=== PATIENT | male | born 1945 | race Caucasian/White ===

== ENCOUNTER 2017-06-05 14:57 | Emergency (ER) | payer MEDICARE, BC ==
[~2017-06-05] VITALS: Ht 170.2 cm; Wt 97.3 kg
[~2017-06-05 14:57] MED LIST: ASPIRIN 81M81 MG/TA2 PO; ATIVAN 0.50.5 MG/TAB PO; CALCIUM 600600 MG PO; CALCIUM600 MG PO; CEFACLOR250 MG PO; CELEXA40 MG PO; COLACE 100100 MG/CAP PO; COREG 6.256.25 MG/TA PO; EFFIENT10 MG PO; EPA/GLA1 SGL PO; FLOMAX 0.40.4 MG/CAP PO; FOLIC ACID 40400 MCG PO; LEVOXYL0.05 MG PO; LIPITOR 10MG10 MG PO; MAGIMIN-FORTE250 MG PO; MAGNESIUM250 M1 PO; MASON NATURAL1000 MG PO; MASON NATURAL1200 MG PO; NEURONTIN100 MG/CAP PO; NEURONTIN300 MG/CAP PO; NITROSTAT0.4 MG/TAB SL; NORCO 325 MG-51 TAB PO; OXYCONTIN 10MG10 MG PO; PERCOCET 325 MG1 TA2 PO; PLAVIX 75MG TAB75 MG PO; PRILOSEC 20MG20 MG PO; RISPERDAL 1M1 MG/TAB PO; SYNTHROID0.075 MG/T PO; THEO-DUR 2200 MG/TAB PO; TOPROL XL 25MG25 MG PO; TRADJENTA5 MG PO; VASOTEC 2.2.5 MG/TAB PO; ZESTRIL 10MG10 MG PO; ZYPREXA ZYDIS5 MG PO
[2017-06-05 15:05] VITALS: BP 116/74; TEMP 97.7
[2017-06-05 15:36] LABS: BASO # 0.1 (0.0-0.2); BASO % 0.5 % (0.0-2.0); EOS # 0.3 (0.0-0.7); EOS % 2.3 % (0-4.0); GRAN # 7.8 (1.4-6.5); GRAN % 71.3 % (42.2-75.2); HEMATOCRIT 44.7 % (42.0-52.0); HEMOGLOBIN 15.6 g/dl (13.5-18.0); LYMPH % 18.3 % (20.0-51.0); MEAN CELL VOLUME 92 fl (80.0-100.0); MEAN CORPUSCULAR HEMOGLOBIN 32 pg (27.0-31.0); MEAN CORPUSCULAR HGB CONC 35 g/dl (33.0-37.0); MEAN PLATELET VOLUME 9.6 fl (7.4-10.4); MONO # 0.8 (0.1-0.6); MONO % 7.3 % (1.7-9.3); PLATELET COUNT 257 K/mm3 (130-400); RED BLOOD COUNT 4.85 M/mm3 (4.20-5.60); REDCELL DISTRIBUTION WIDTH-CV 12.4 % (11.5-14.5); WHITE BLOOD COUNT 10.9 K/mm3 (4.8-10.8)
[2017-06-05 15:42] LABS: CALCIUM 9.2 mg/dL (8.4-10.2); CREATININE, serum 0.89 mg/dL (0.66-1.25); POTASSIUM 4.2 mmol/L (3.4-5.0)
[2017-06-05 17:21] VITALS: PULSE 78
== END 2017-06-05 17:22 | disposition home or self-care (01) ==
LOC: COL.ER 14:57
PROVIDERS: Emergency Medicine
DX: S09.90XA Unspecified injury of head, initial encounter (principal); S01.01XA Laceration without foreign body of scalp, initial encounter; Z23 Encounter for immunization; W06.XXXA Fall from bed, initial encounter; Y92.128 Other place in nursing home as the place of occurrence of the external cause

== ENCOUNTER → 2017-06-25 | Outpatient (REF) ==
[2017-06-25 19:08] LABS: SQUAMOUS EPITHELIAL 0-2 /hpf; URINE BACTERIA Rare /hpf; URINE RBC 0-2 /hpf
[2017-06-25 19:23] LABS: URINE APPEARANCE Clear; URINE COLOR Yellow
[2017-06-25 19:24] LABS: PH 7 (5-8); URINE BILIRUBIN Negative (NEGATIVE); URINE GLUCOSE Negative (NEGATIVE); URINE KETONE Negative (NEGATIVE); URINE UROBILINOGEN Negative (NEGATIVE)
[2017-06-25 19:25] LABS: URINE BLOOD Negative (NEGATIVE)
== END ==
LOC: ZCOL.LAB 18:35
PROVIDERS: Family Medicine
DX: Z01.89 Encounter for other specified special examinations (principal)

== ENCOUNTER 2017-12-14 12:54 | Inpatient (IN) | payer MEDICARE, BC ==
[~2017-12-14] VITALS: Ht 170.2 cm; Wt 81.8 kg
[2017-12-14] VITALS (365 sets, daily range): BP systolic 113–147; BP diastolic 60–89; PULSE 130–135; TEMP 97.8–98.6; O2SAT 87–100
[2017-12-14 13:23] LABS: BASO # 0.1 (0.0-0.2); BASO % 0.2 % (0.0-2.0); GRAN % 89.7 % (42.2-75.2); HEMATOCRIT 49.2 % (42.0-52.0); HEMOGLOBIN 17.5 g/dl (13.5-18.0); LYMPH % 2.6 % (20.0-51.0); MEAN CELL VOLUME 91 fl (80.0-100.0); MEAN CORPUSCULAR HEMOGLOBIN 32 pg (27.0-31.0); MEAN CORPUSCULAR HGB CONC 36 g/dl (33.0-37.0); MEAN PLATELET VOLUME 9.2 fl (7.4-10.4); MONO # 2.4 (0.1-0.6); MONO % 6.1 % (1.7-9.3); PLATELET COUNT 437 K/mm3 (130-400); REDCELL DISTRIBUTION WIDTH-CV 12.3 % (11.5-14.5)
[2017-12-14 13:27] LABS: INR 1.1 (0.8-3.0); PROTHROMBIN TIME 13.3 SECONDS (9.7-12.8)
[2017-12-14 13:29] LABS: ALBUMIN 3.9 gm/dL (3.5-5.0); BILIRUBIN,TOTAL 1.2 mg/dL (0.0-1.0); CALCIUM 10.2 mg/dL (8.4-10.2); CREATININE, serum 1.93 mg/dL (0.66-1.25); PARTIAL THROMBOPLASTIN TIME 28.5 SECONDS (26.0-37.0); POTASSIUM 4.7 mmol/L (3.4-5.0); TOTAL PROTEIN 7.3 gm/dL (6.4-8.2)
[2017-12-14 13:41] LABS: TROPONIN-I 0.031 ng/mL (0.000-0.034)
[2017-12-14 14:06] LABS: COLLECTION METHOD CATHETER
[2017-12-14 14:19] LABS: AMORPHOUS CRYSTAL Present /uL; PH 9 (5-8); SQUAMOUS EPITHELIAL None Seen /hpf; URINE APPEARANCE Cloudy; URINE BACTERIA None Seen /hpf; URINE BILIRUBIN Negative (NEGATIVE); URINE BLOOD 3+ (NEGATIVE); URINE COLOR Red; URINE GLUCOSE Negative (NEGATIVE); URINE KETONE Negative (NEGATIVE); URINE LEUKOCYTE ESTERASE 2+ (NEGATIVE); URINE NITRATE Negative (NEGATIVE); URINE PROTEIN(semi-quant) 2+ (NEGATIVE); URINE RBC >50 /hpf; URINE UROBILINOGEN Negative (NEGATIVE)
[2017-12-14 16:54] LABS: ARTERIAL BLD GAS O2 SATURATION 96.2 % (92-100); ARTERIAL BLD GAS TCO2 CT 14.6; ARTERIAL BLOOD GAS BASE EXCESS -8.9 (-2-2); ARTERIAL BLOOD GAS HCO3 13.9 meq/L (22-26)
[2017-12-14] MEDS ORDERED: ATIVAN 1MG T1 MG/TAB PO (20:02)
[2017-12-14] MEDS ORDERED: NEURONTIN400 MG/CAP PO (20:04)
[2017-12-14] MEDS ORDERED: MIRAPEX0.25 MG PO (20:08)
[2017-12-14] MEDS ORDERED: CARBIDOPA PO (20:09)
[2017-12-14] MEDS ORDERED: LEVODOPA PO (20:09)
[2017-12-14] MEDS ORDERED: PLAVIX 75MG TAB75 MG PO (20:11)
[2017-12-14] MEDS ORDERED: PROSCAR 5MG5 MG PO (20:14)
[2017-12-14] MEDS ORDERED: AMARYL 2MG T2 MG/TAB PO (20:17)
[2017-12-14] MEDS ORDERED: JANUVIA 100MG100 MG PO (20:18)
[2017-12-14] MEDS ORDERED: COLESTID 1GM1 G PO (20:19)
[2017-12-14] MEDS ORDERED: PEPCID 20MG TAB20 MG PO (20:20)
[2017-12-14] MEDS ORDERED: THORAZINE 225 MG/TAB PO ×2 (20:21→20:28)
[2017-12-14] MEDS ORDERED: ABILIFY5 MG (20:22)
[2017-12-14] MEDS ORDERED: EFFEXOR 75M75 MG/TAB PO (20:24)
[2017-12-14] MEDS ORDERED: EFFEXOR-XR150 MG PO (20:25)
[2017-12-14] MEDS ORDERED: COREG 6.256.25 MG/TA PO (20:25)
[2017-12-14] MEDS ORDERED: DEPO-PROVER150 MG/M1 IM (20:26)
[2017-12-14] MEDS ORDERED: LIPITOR20 MG PO (20:26)
[2017-12-14] MEDS ORDERED: ACTOS 15MG TAB15 MG PO (20:27)
[2017-12-15] VITALS (830 sets, daily range): BP systolic 98–166; BP diastolic 59–93; PULSE 93–120; TEMP 97.2–99.3; O2SAT 68–100
[2017-12-15 05:15] LABS: ARTERIAL BLD GAS O2 SATURATION 97.4 % (92-100); ARTERIAL BLD GAS TCO2 CT 19.7; ARTERIAL BLOOD GAS HCO3 18.8 meq/L (22-26); ARTERIAL BLOOD GAS PCO2 28.1 mmHg (35-45); ARTERIAL BLOOD GAS PO2 107.1 mmHg (80-100); ARTERIAL BLOOD GAS pH 7.44 (7.35-7.45)
[2017-12-15 05:16] LABS: MEAN CELL VOLUME 94 fl (80.0-100.0); MEAN CORPUSCULAR HGB CONC 35 g/dl (33.0-37.0); MEAN PLATELET VOLUME 9.2 fl (7.4-10.4); REDCELL DISTRIBUTION WIDTH-CV 12.5 % (11.5-14.5)
[2017-12-15 05:22] LABS: HEMATOCRIT 32.8 % (42.0-52.0); HEMOGLOBIN 11.4 g/dl (13.5-18.0); MEAN CORPUSCULAR HEMOGLOBIN 33 pg (27.0-31.0); PLATELET COUNT 273 K/mm3 (130-400)
[2017-12-15 05:24] LABS: INR 1.4 (0.8-3.0); PROTHROMBIN TIME 16.8 SECONDS (9.7-12.8)
[2017-12-15 05:27] LABS: ALBUMIN 2.5 gm/dL (3.5-5.0); BILIRUBIN,TOTAL 0.5 mg/dL (0.0-1.0); CALCIUM 8.5 mg/dL (8.4-10.2); CREATININE, serum 0.89 mg/dL (0.66-1.25); POTASSIUM 3.9 mmol/L (3.4-5.0); TOTAL PROTEIN 5.2 gm/dL (6.4-8.2)
[2017-12-15 05:42] LABS: BAND 4 % (0-10); LYMPHOCYTE 8 % (20.0-51.0); NEUTROPHILS 87 % (42.0-75.2)
[2017-12-15 05:43] LABS: ANISOCYTOSIS 1+; MICROCYTOSIS 1+; POLYCHROMASIA 1+
[2017-12-16] VITALS (589 sets, daily range): BP systolic 73–157; BP diastolic 55–82; PULSE 95–113; TEMP 97.8–99.6; O2SAT 75–100
[2017-12-16 05:39] LABS: BASO % 0.2 % (0.0-2.0); EOS # 0.1 (0.0-0.7); EOS % 0.7 % (0-4.0); GRAN # 13.2 (1.4-6.5); GRAN % 77.1 % (42.2-75.2); LYMPH # 2.7 (1.2-3.4); LYMPH % 15.9 % (20.0-51.0); MEAN CELL VOLUME 93 fl (80.0-100.0); MEAN CORPUSCULAR HGB CONC 34 g/dl (33.0-37.0); MEAN PLATELET VOLUME 9.4 fl (7.4-10.4); MONO % 5.5 % (1.7-9.3); PLATELET COUNT 226 K/mm3 (130-400); RED BLOOD COUNT 3.26 M/mm3 (4.20-5.60); REDCELL DISTRIBUTION WIDTH-CV 12.4 % (11.5-14.5)
[2017-12-16 05:40] LABS: HEMATOCRIT 30.3 % (42.0-52.0); HEMOGLOBIN 10.4 g/dl (13.5-18.0); MEAN CORPUSCULAR HEMOGLOBIN 32 pg (27.0-31.0)
[2017-12-16 05:50] LABS: ALBUMIN 2.3 gm/dL (3.5-5.0); BILIRUBIN,TOTAL 0.6 mg/dL (0.0-1.0); CREATININE, serum 0.71 mg/dL (0.66-1.25); POTASSIUM 3.4 mmol/L (3.4-5.0); TOTAL PROTEIN 5.1 gm/dL (6.4-8.2)
[2017-12-17] VITALS (7 sets, daily range): BP systolic 118–150; BP diastolic 53–73; PULSE 84–105; TEMP 97.5–99.5
[2017-12-17 06:43] LABS: BASO % 0.3 % (0.0-2.0); EOS % 0.3 % (0-4.0); GRAN # 8.1 (1.4-6.5); GRAN % 72.5 % (42.2-75.2); LYMPH # 2.2 (1.2-3.4); LYMPH % 19.4 % (20.0-51.0); MEAN CELL VOLUME 92 fl (80.0-100.0); MEAN CORPUSCULAR HGB CONC 35 g/dl (33.0-37.0); MEAN PLATELET VOLUME 9.8 fl (7.4-10.4); MONO # 0.8 (0.1-0.6); PLATELET COUNT 240 K/mm3 (130-400); RED BLOOD COUNT 3.45 M/mm3 (4.20-5.60); REDCELL DISTRIBUTION WIDTH-CV 12.3 % (11.5-14.5)
[2017-12-17 06:45] LABS: HEMATOCRIT 31.7 % (42.0-52.0); MEAN CORPUSCULAR HEMOGLOBIN 32 pg (27.0-31.0)
[2017-12-17 06:53] LABS: ALBUMIN 2.4 gm/dL (3.5-5.0); BILIRUBIN,TOTAL 0.9 mg/dL (0.0-1.0); CALCIUM 7.9 mg/dL (8.4-10.2); CREATININE, serum 0.74 mg/dL (0.66-1.25); POTASSIUM 3.4 mmol/L (3.4-5.0); TOTAL PROTEIN 5.2 gm/dL (6.4-8.2)
[2017-12-18 03:50] VITALS: BP 140/60; PULSE 82; TEMP 98.5
[2017-12-18 06:46] LABS: BASO % 0.2 % (0.0-2.0); EOS # 0.1 (0.0-0.7); EOS % 0.7 % (0-4.0); GRAN # 5.4 (1.4-6.5); GRAN % 65.5 % (42.2-75.2); LYMPH % 23.7 % (20.0-51.0); MEAN CELL VOLUME 92 fl (80.0-100.0); MEAN CORPUSCULAR HGB CONC 35 g/dl (33.0-37.0); MEAN PLATELET VOLUME 9.8 fl (7.4-10.4); MONO # 0.8 (0.1-0.6); MONO % 9.7 % (1.7-9.3); PLATELET COUNT 238 K/mm3 (130-400); RED BLOOD COUNT 3.43 M/mm3 (4.20-5.60); REDCELL DISTRIBUTION WIDTH-CV 12.2 % (11.5-14.5)
[2017-12-18 06:47] LABS: HEMATOCRIT 31.6 % (42.0-52.0); MEAN CORPUSCULAR HEMOGLOBIN 32 pg (27.0-31.0)
[2017-12-18 07:01] LABS: CALCIUM 7.8 mg/dL (8.4-10.2); CREATININE, serum 0.67 mg/dL (0.66-1.25)
[2017-12-18 07:28] LABS: THYROID STIMULATING HORMONE 0.249 uIU/mL (0.465-4.680)
[2017-12-18 07:38] LABS: POTASSIUM 2.9 mmol/L (3.4-5.0)
[2017-12-18 07:57] VITALS: BP 161/82; PULSE 88; TEMP 99.9
[2017-12-18 11:29] VITALS: BP 124/65; PULSE 81; TEMP 99
[2017-12-18 16:10] VITALS: BP 128/70; PULSE 87; TEMP 98.9
[2017-12-18 19:19] VITALS: BP 123/62; PULSE 78; TEMP 98.5
[2017-12-18 23:33] VITALS: BP 112/54; PULSE 70; TEMP 97.8
[2017-12-19 03:38] VITALS: BP 131/70; PULSE 72; TEMP 97.7
[2017-12-19 06:41] LABS: BASO % 0.4 % (0.0-2.0); EOS # 0.2 (0.0-0.7); EOS % 1.9 % (0-4.0); GRAN % 61.1 % (42.2-75.2); LYMPH # 2.7 (1.2-3.4); MEAN CELL VOLUME 92 fl (80.0-100.0); MEAN CORPUSCULAR HGB CONC 34 g/dl (33.0-37.0); MEAN PLATELET VOLUME 9.7 fl (7.4-10.4); MONO # 0.9 (0.1-0.6); MONO % 9.3 % (1.7-9.3); PLATELET COUNT 248 K/mm3 (130-400); RED BLOOD COUNT 3.57 M/mm3 (4.20-5.60); REDCELL DISTRIBUTION WIDTH-CV 12.4 % (11.5-14.5)
[2017-12-19 06:55] LABS: CALCIUM 8.2 mg/dL (8.4-10.2); CREATININE, serum 0.68 mg/dL (0.66-1.25); MAGNESIUM 1.9 mg/dL (1.6-2.3)
[2017-12-19 06:56] LABS: POTASSIUM 3.6 mmol/L (3.4-5.0)
[2017-12-19 06:57] LABS: HEMATOCRIT 32.9 % (42.0-52.0); HEMOGLOBIN 11.3 g/dl (13.5-18.0); MEAN CORPUSCULAR HEMOGLOBIN 32 pg (27.0-31.0)
[2017-12-19 07:47] VITALS: BP 119/60; PULSE 78; TEMP 97.7
[2017-12-19] MEDS ORDERED: CIPRO 500MG TA500 MG PO (09:45)
[2017-12-19 10:02] VITALS: BP 119/60; PULSE 78; TEMP 97.7
[2017-12-19 12:44] VITALS: BP 128/67; PULSE 80; TEMP 98.6
== END 2017-12-19 15:10 | DRG 872 ==
LOC: COL.ER 12:54 → ICU 14:01 → MEDICAL 14:01
PROVIDERS: Emergency Medicine; Family Medicine; Nurse Practitioner Family
PROC: 02HV33Z Insertion of Infusion Device into Superior Vena Cava, Percutaneous Approach (ICD-10-PCS; principal; 2017-12-14)
DX: A41.89 Other specified sepsis (principal); N39.0 Urinary tract infection, site not specified; N41.0 Acute prostatitis; N17.9 Acute kidney failure, unspecified; E87.2 Acidosis; Z66 Do not resuscitate; R65.20 Severe sepsis without septic shock; B96.4 Proteus (mirabilis) (morganii) as the cause of diseases classified elsewhere; E11.9 Type 2 diabetes mellitus without complications; E87.6 Hypokalemia; I25.10 Atherosclerotic heart disease of native coronary artery without angina pectoris; Z95.5 Presence of coronary angioplasty implant and graft; Z87.891 Personal history of nicotine dependence; F03.90 Unspecified dementia, unspecified severity, without behavioral disturbance, psychotic disturbance, mood disturbance, and anxiety
CPT/HCPCS: 99223-AI; 99232-AI; 99233-AI; 99239; C1751; C9113; J0696; J0744; J1265; J1644; J1815; J3370; J3475; J3480; J7030; J7050; J7060; J7070

== ENCOUNTER 2018-01-18 20:06 | Inpatient (IN) | payer MEDICARE, BC ==
[~2018-01-18] VITALS: Ht 170.2 cm; Wt 76.7 kg
[~2018-01-18 20:06] MED LIST changes: +ABILIFY5 MG PO; +ACTOS 15MG TAB15 MG PO; +AMARYL 2MG T2 MG/TAB PO; +ATIVAN 1MG T1 MG/TAB PO; +CIPRO 500MG TA500 MG PO; +COLESTID 1GM1 G PO; +DEPO-PROVER150 MG/M1 IM; +EFFEXOR 75M75 MG/TAB PO; +EFFEXOR-XR150 MG PO; +JANUVIA 100MG100 MG PO; +LIPITOR20 MG PO; +MIRAPEX0.25 MG PO; +NEURONTIN400 MG/CAP PO; +PEPCID 20MG TAB20 MG PO; +PROSCAR 5MG5 MG PO; +SINEMET 10/101 UDTAB PO; +THORAZINE 225 MG/TAB PO; +THORAZINE 550 MG/TAB PO; +VANCOCIN HCL1 GM IV
[2018-01-18 20:15] LABS: ARTERIAL BLD GAS O2 SATURATION 99.4 % (92-100); ARTERIAL BLD GAS TCO2 CT 22.9; ARTERIAL BLOOD GAS BASE EXCESS -1.7 (-2-2); ARTERIAL BLOOD GAS HCO3 21.9 meq/L (22-26); ARTERIAL BLOOD GAS PCO2 33.7 mmHg (35-45); ARTERIAL BLOOD GAS PO2 404.8 mmHg (80-100); ARTERIAL BLOOD GAS pH 7.43 (7.35-7.45)
[2018-01-18 20:19] LABS: BASO # 0.1 (0.0-0.2); BASO % 0.3 % (0.0-2.0); EOS # 0.1 (0.0-0.7); EOS % 0.3 % (0-4.0); GRAN % 91.3 % (42.2-75.2); HEMOGLOBIN 13.7 g/dl (13.5-18.0); LYMPH # 0.6 (1.2-3.4); LYMPH % 3.4 % (20.0-51.0); MEAN CELL VOLUME 92 fl (80.0-100.0); MEAN CORPUSCULAR HEMOGLOBIN 32 pg (27.0-31.0); MEAN CORPUSCULAR HGB CONC 34 g/dl (33.0-37.0); MEAN PLATELET VOLUME 9.4 fl (7.4-10.4); MONO # 0.7 (0.1-0.6); MONO % 4.3 % (1.7-9.3); PLATELET COUNT 318 K/mm3 (130-400); RED BLOOD COUNT 4.33 M/mm3 (4.20-5.60); REDCELL DISTRIBUTION WIDTH-CV 13.4 % (11.5-14.5)
[2018-01-18 20:20] LABS: COLLECTION METHOD CATHETER
[2018-01-18 20:23] LABS: INR 1.3 (0.8-3.0); PROTHROMBIN TIME 14.6 SECONDS (9.7-12.8)
[2018-01-18 20:25] LABS: PARTIAL THROMBOPLASTIN TIME 35.7 SECONDS (26.0-37.0)
[2018-01-18 20:27] LABS: ALBUMIN 3.4 gm/dL (3.5-5.0); CALCIUM 8.6 mg/dL (8.4-10.2); CREATININE, serum 0.86 mg/dL (0.66-1.25); POTASSIUM 4.2 mmol/L (3.4-5.0); TOTAL PROTEIN 6.8 gm/dL (6.4-8.2)
[2018-01-18 20:38] LABS: MUCOUS Present /lpf; PH 5 (5-8); SQUAMOUS EPITHELIAL None Seen /hpf; URINE APPEARANCE Cloudy; URINE BACTERIA None Seen /hpf; URINE BILIRUBIN Negative (NEGATIVE); URINE BLOOD 2+ (NEGATIVE); URINE COLOR Amber; URINE GLUCOSE Negative (NEGATIVE); URINE KETONE 1+ (NEGATIVE); URINE LEUKOCYTE ESTERASE 1+ (NEGATIVE); URINE NITRATE Negative (NEGATIVE); URINE PROTEIN(semi-quant) 2+ (NEGATIVE); URINE RBC >50 /hpf; URINE UROBILINOGEN Negative (NEGATIVE)
[2018-01-18 20:39] LABS: TROPONIN-I 0.022 ng/mL (0.000-0.034)
[2018-01-18 22:18] LABS: ARTERIAL BLD GAS O2 SATURATION 95.9 % (92-100); ARTERIAL BLD GAS TCO2 CT 21.7; ARTERIAL BLOOD GAS BASE EXCESS -2.4 (-2-2); ARTERIAL BLOOD GAS HCO3 20.7 meq/L (22-26); ARTERIAL BLOOD GAS PCO2 31.1 mmHg (35-45); ARTERIAL BLOOD GAS PO2 81.5 mmHg (80-100); ARTERIAL BLOOD GAS pH 7.44 (7.35-7.45)
[2018-01-18] MEDS ORDERED: ACTOS 15MG TAB15 MG PO (23:47)
[2018-01-19] VITALS (19 sets, daily range): BP systolic 78–137; BP diastolic 46–84; PULSE 84–130; TEMP 97.8–99.1
[2018-01-19] MEDS ORDERED: PROBIOTIC PO (03:06)
[2018-01-19 07:23] LABS: MEAN CORPUSCULAR HGB CONC 32 g/dl (33.0-37.0); MEAN PLATELET VOLUME 9.7 fl (7.4-10.4); PLATELET COUNT 221 K/mm3 (130-400); RED BLOOD COUNT 3.29 M/mm3 (4.20-5.60); REDCELL DISTRIBUTION WIDTH-CV 13.8 % (11.5-14.5)
[2018-01-19 07:35] LABS: ALBUMIN 2.5 gm/dL (3.5-5.0); BILIRUBIN,TOTAL 0.7 mg/dL (0.0-1.0); CALCIUM 7.3 mg/dL (8.4-10.2); CREATININE, serum 0.82 mg/dL (0.66-1.25); POTASSIUM 3.5 mmol/L (3.4-5.0); TOTAL PROTEIN 5.4 gm/dL (6.4-8.2)
[2018-01-19 07:38] LABS: HEMATOCRIT 31.9 % (42.0-52.0); HEMOGLOBIN 10.3 g/dl (13.5-18.0); MEAN CELL VOLUME 97 fl (80.0-100.0); MEAN CORPUSCULAR HEMOGLOBIN 31 pg (27.0-31.0)
[2018-01-19 07:51] LABS: TROPONIN-I 0.076 ng/mL (0.000-0.034)
[2018-01-19 08:23] LABS: BAND 28 % (0-10); HYPOCHROMIA 1+; LYMPHOCYTE 1 % (20.0-51.0); NEUTROPHILS 70 % (42.0-75.2); PLATELET ESTIMATE NORMAL (NORMAL)
[2018-01-20 03:47] VITALS: BP 117/47; PULSE 95; TEMP 98.7
[2018-01-20 07:41] LABS: BASO % 0.1 % (0.0-2.0); GRAN # 12.4 (1.4-6.5); GRAN % 84.9 % (42.2-75.2); LYMPH # 1.7 (1.2-3.4); LYMPH % 11.3 % (20.0-51.0); MEAN CELL VOLUME 96 fl (80.0-100.0); MEAN CORPUSCULAR HGB CONC 33 g/dl (33.0-37.0); MEAN PLATELET VOLUME 9.8 fl (7.4-10.4); MONO # 0.5 (0.1-0.6); MONO % 3.2 % (1.7-9.3); PLATELET COUNT 240 K/mm3 (130-400); RED BLOOD COUNT 3.24 M/mm3 (4.20-5.60); REDCELL DISTRIBUTION WIDTH-CV 13.6 % (11.5-14.5)
[2018-01-20 07:43] VITALS: BP 138/72; PULSE 84; TEMP 99.7
[2018-01-20 07:44] LABS: HEMATOCRIT 31.1 % (42.0-52.0); HEMOGLOBIN 10.1 g/dl (13.5-18.0); MEAN CORPUSCULAR HEMOGLOBIN 31 pg (27.0-31.0)
[2018-01-20 07:50] LABS: CALCIUM 7.7 mg/dL (8.4-10.2); CREATININE, serum 0.76 mg/dL (0.66-1.25); MAGNESIUM 1.6 mg/dL (1.6-2.3); PHOSPHOROUS 2.3 mg/dL (2.5-4.5); POTASSIUM 3.3 mmol/L (3.4-5.0)
[2018-01-20 11:46] VITALS: BP 144/76; PULSE 99; TEMP 98.4
[2018-01-20 16:06] VITALS: BP 152/86; PULSE 86; TEMP 99.1
[2018-01-20 20:37] VITALS: BP 165/89; PULSE 105; TEMP 99.2
[2018-01-20 23:48] VITALS: BP 155/85; PULSE 102; TEMP 99.3
[2018-01-21 03:21] VITALS: BP 154/92; PULSE 93; TEMP 99.3
[2018-01-21 06:37] LABS: BASO # 0.1 (0.0-0.2); BASO % 0.5 % (0.0-2.0); EOS % 0.1 % (0-4.0); GRAN # 8.1 (1.4-6.5); LYMPH # 1.3 (1.2-3.4); MEAN CELL VOLUME 93 fl (80.0-100.0); MEAN CORPUSCULAR HGB CONC 34 g/dl (33.0-37.0); MEAN PLATELET VOLUME 9.8 fl (7.4-10.4); MONO # 0.6 (0.1-0.6); PLATELET COUNT 234 K/mm3 (130-400); RED BLOOD COUNT 3.56 M/mm3 (4.20-5.60); REDCELL DISTRIBUTION WIDTH-CV 13.4 % (11.5-14.5)
[2018-01-21 06:39] LABS: CALCIUM 7.9 mg/dL (8.4-10.2); CREATININE, serum 0.75 mg/dL (0.66-1.25); MAGNESIUM 2.2 mg/dL (1.6-2.3); PHOSPHOROUS 2.3 mg/dL (2.5-4.5); POTASSIUM 3.8 mmol/L (3.4-5.0)
[2018-01-21 06:50] LABS: HEMATOCRIT 33.1 % (42.0-52.0); HEMOGLOBIN 11.1 g/dl (13.5-18.0); MEAN CORPUSCULAR HEMOGLOBIN 31 pg (27.0-31.0)
[2018-01-21 07:48] VITALS: BP 143/91; PULSE 89; TEMP 98.2
[2018-01-21 11:25] VITALS: BP 140/86; PULSE 87; TEMP 99
[2018-01-21 15:37] LABS: FOLATE (FOLIC ACID) 4.3 ng/mL (7.0-31.4)
[2018-01-21 16:04] VITALS: BP 155/82; PULSE 93; TEMP 99.1
[2018-01-21 20:31] VITALS: BP 143/64; PULSE 94; TEMP 97.7
[2018-01-21 23:31] VITALS: BP 132/60; PULSE 83
[2018-01-22 04:29] VITALS: BP 143/67; PULSE 81; TEMP 99.3
[2018-01-22 05:45] LABS: BASO % 0.5 % (0.0-2.0); EOS % 0.3 % (0-4.0); GRAN # 5.3 (1.4-6.5); GRAN % 71.7 % (42.2-75.2); LYMPH # 1.5 (1.2-3.4); LYMPH % 19.8 % (20.0-51.0); MEAN CELL VOLUME 92 fl (80.0-100.0); MEAN CORPUSCULAR HGB CONC 34 g/dl (33.0-37.0); MEAN PLATELET VOLUME 9.5 fl (7.4-10.4); MONO # 0.5 (0.1-0.6); MONO % 7.3 % (1.7-9.3); PLATELET COUNT 243 K/mm3 (130-400); RED BLOOD COUNT 3.68 M/mm3 (4.20-5.60); REDCELL DISTRIBUTION WIDTH-CV 13.1 % (11.5-14.5)
[2018-01-22 05:49] LABS: HEMATOCRIT 33.7 % (42.0-52.0); HEMOGLOBIN 11.5 g/dl (13.5-18.0); MEAN CORPUSCULAR HEMOGLOBIN 31 pg (27.0-31.0)
[2018-01-22 06:01] LABS: CALCIUM 7.9 mg/dL (8.4-10.2); CREATININE, serum 0.7 mg/dL (0.66-1.25); POTASSIUM 3.5 mmol/L (3.4-5.0)
[2018-01-22 09:04] VITALS: BP 108/75; PULSE 92; TEMP 97
[2018-01-22 12:32] VITALS: BP 151/87; PULSE 88; TEMP 97.9
[2018-01-22 15:48] VITALS: BP 146/70; PULSE 88; TEMP 98.7
[2018-01-22 20:32] VITALS: BP 135/72; PULSE 95; TEMP 98.7
[2018-01-23 00:54] VITALS: BP 153/72; PULSE 80
[2018-01-23 05:16] VITALS: BP 150/83; PULSE 93; TEMP 98.8
[2018-01-23 07:02] VITALS: BP 159/82; PULSE 95; TEMP 99.1
[2018-01-23 11:11] VITALS: BP 151/82; PULSE 99; TEMP 97.9
[2018-01-23] MEDS ORDERED: ALBUTEROL0.83 MG/ML IH (13:27)
[2018-01-23] MEDS ORDERED: ROXANOL 20MG20 MG/ML SL (13:27)
[2018-01-23] MEDS ORDERED: ATIVAN 1MG T1 MG/TAB PO (13:28)
[2018-01-23] MEDS ORDERED: COMPAZINE25 MG/SUPP RC (13:29)
[2018-01-23] MEDS ORDERED: ATROPINE 2 ML2 ML SL (13:29)
[2018-01-23] MEDS ORDERED: LIQUIFILM TEARS15 ML OP (13:29)
[2018-01-23] MEDS ORDERED: DULCOLAX S10 MG/SUPP RC (13:29)
[2018-01-23 15:12] VITALS: BP 151/82; PULSE 99; TEMP 97.9
== END 2018-01-23 15:15 | disposition hospice, home (50) | DRG 871 ==
LOC: COL.ER 20:06 → MEDICAL 23:02
PROVIDERS: Emergency Medicine; Internal Medicine; Nurse Practitioner Family; Physician Assistant
DX: A41.9 Sepsis, unspecified organism (principal); R65.21 Severe sepsis with septic shock; J69.0 Pneumonitis due to inhalation of food and vomit; I21.A1 Myocardial infarction type 2; J96.01 Acute respiratory failure with hypoxia; N39.0 Urinary tract infection, site not specified; E87.2 Acidosis; Z51.5 Encounter for palliative care; Z66 Do not resuscitate; J10.89 Influenza due to other identified influenza virus with other manifestations; G20 Parkinson's disease; E03.9 Hypothyroidism, unspecified; E11.9 Type 2 diabetes mellitus without complications; H49.01 Third [oculomotor] nerve palsy, right eye; E87.6 Hypokalemia; F02.80 Dementia in other diseases classified elsewhere, unspecified severity, without behavioral disturbance, psychotic disturbance, mood disturbance, and anxiety; D64.9 Anemia, unspecified; Z86.74 Personal history of sudden cardiac arrest; Z87.891 Personal history of nicotine dependence; Z88.0 Allergy status to penicillin; Z95.5 Presence of coronary angioplasty implant and graft
CPT/HCPCS: 99223-AI; 99233-AI; 99239; A4314; C9113; J0692; J1644; J1815; J1940; J2405; J2930; J3370; J3420; J3475; J3480; J7030; J7040; J7050; J7060